=== PATIENT | female | born 1955 | race Caucasian/White ===

== ENCOUNTER → 2019-06-25 | Outpatient (CLI) | payer OTHER ==
[~2019-06-25] MED LIST: LANS15EC PO
== END ==
LOC: LAB SHORT 17:00 → LAB EV 17:00
DX: L02.91 Cutaneous abscess, unspecified (principal)
CPT/HCPCS: 87070; 87075; 87205

== ENCOUNTER → 2020-09-20 | Outpatient (CLI) | payer OTHER | END | disposition home or self-care (01) | LOC: LAB SHORT 15:55 → LAB 15:55 → PLD 15:55 | DX: N39.0 Urinary tract infection, site not specified (principal) | CPT/HCPCS: 87086 ==

== ENCOUNTER → 2020-12-29 | Outpatient (CLI) | payer OTHER ==
[2020-12-31 14:11] LABS: HPV 16 Negative (Negative); HPV 18 Negative (Negative); HPV OTHER HR TYPES Negative (Negative)
== END | disposition home or self-care (01) ==
LOC: LAB SHORT 12:06 → LAB 12:06
PROVIDERS: Student in an Organized Health Care Education/Training Program
DX: Z01.419 Encounter for gynecological examination (general) (routine) without abnormal findings (principal)
CPT/HCPCS: 87624; G0145

== ENCOUNTER 2021-12-06 09:59 | Day surgery (SDC) | payer OTHER ==
[~2021-12-06] VITALS: Ht 157.5 cm; Wt 77.0 kg
[2021-12-06] MEDS ORDERED: Prozac20 MG (11:03)
[2021-12-06] MEDS ORDERED: METF500 (11:03)
[2021-12-06] MEDS ORDERED: TRAZ50 (11:03)
== END 2021-12-06 12:23 | disposition home or self-care (01) ==
LOC: ORSCSDS 09:59
PROVIDERS: Internal Medicine Gastroenterology
PROC: 0DBL8ZX Excision of Transverse Colon, Via Natural or Artificial Opening Endoscopic, Diagnostic (ICD-10-PCS; principal; 2021-12-06 11:30)
DX: Z12.11 Encounter for screening for malignant neoplasm of colon (principal); Z83.71 Family history of colonic polyps; Z86.010 Personal history of colon polyps; D12.3 Benign neoplasm of transverse colon; K57.50 Diverticulosis of both small and large intestine without perforation or abscess without bleeding; K64.4 Residual hemorrhoidal skin tags; E11.9 Type 2 diabetes mellitus without complications; Z87.891 Personal history of nicotine dependence; Z79.84 Long term (current) use of oral hypoglycemic drugs; Z79.899 Other long term (current) drug therapy
CPT/HCPCS: 82947; 88305; J2704; J7120

== ENCOUNTER → 2023-11-21 | Outpatient (CLI) | payer OTHER | LOC: LAB 11:10 → LAB SHORT 11:10 | DX: E86.0 Dehydration (principal) ==

== ENCOUNTER → 2024-01-01 | Outpatient (CLI) | payer OTHER ==
[~2024-01-01] MED LIST changes: +METF500; +Prozac20 MG; +TRAZ50
[2024-01-07 13:20] LABS: CALCIUM, URINE - PER 24H 171 mg/d (100-250); CALCIUM, URINE - PER VOLUME 34.2 mg/dL; CHLORIDE, URINE - PER 24H 88 mmol/d (140-250); CHLORIDE, URINE - PER VOLUME 177 mmol/L; CITRIC ACID, URINE - PER 24H 857 mg/d (320-1240); CITRIC ACID,URINE - PER VOLUME 1714 mg/L; CREATININE, URINE - PER 24H 795 mg/d (500-1400); CREATININE, URINE - PER VOLUME 159 mg/dL; HOURS COLLECTED 24 hr; MAGNESIUM, URINE - PER VOLUME 11.6 mg/dL; MAGNESIUM, URINE PER 24H 58 mg/d (12-199); OXALATE, URINE - PER 24H 14 mg/d (13-40); OXALATE, URINE - PER VOLUME 27 mg/L; PH, URINE 5.48 (5.00-7.50); PHOSPHORUS, URINE - PER 24H 350 mg/d (400-1300); PHOSPHORUS, URINE - PER VOLUME 70 mg/dL; POTASSIUM, URINE - PER 24H 34 mmol/d (25-125); POTASSIUM, URINE - PER VOLUME 68 mmol/L; SODIUM, URINE - PER 24H 84 mmol/d (51-286); SODIUM, URINE - PER VOLUME 168 mmol/L; SULFATE, URINE - PER 24H 8 mmol/d (6-30); SULFATE, URINE - PER VOLUME 15 mmol/L; TOTAL VOLUME 500 mL; URIC ACID, URINE - PER 24H 362 mg/d (250-750); URIC ACID, URINE - PER VOLUME 72.4 mg/dL; URINE SUPERSATURATION INTERP Abnormal; URINE SUPERSATURATION, CAHPO4 1.29; URINE SUPERSATURATION, CAOX 10.77; URINE SUPERSATURATION, UA CALC 2.57
== END ==
LOC: LAB 08:52 → LAB SHORT 08:52
PROVIDERS: Urology
DX: N20.2 Calculus of kidney with calculus of ureter (principal)
CPT/HCPCS: 81003; 82131; 82140; 82340; 82436; 82507; 82570; 83735; 83935; 83945; 84105; 84133; 84300; 84392; 84560